=== PATIENT | female | born 1985 | race Caucasian/White ===

== ENCOUNTER 2023-10-18 09:58 | Outpatient (CLI) | payer BC, SELFPAY | END 2023-10-18 09:59 | disposition home or self-care (01) | LOC: AMB 10-20 15:50 | PROVIDERS: PCP General Practice; Visit Provider Emergency Medicine | DX: R55 Syncope and collapse (principal); R42 Dizziness and giddiness | CPT/HCPCS: A0425; A0427 ==

== ENCOUNTER 2023-10-18 10:38 | Emergency (ER) | payer BC, SELFPAY ==
[2023-10-18 10:48] VITALS: BP 128/83; PULSE 87; RESP 18; TEMP 36.8; O2SAT 99; BMI 24.0
[2023-10-18 10:59] VITALS: PULSE 70; O2SAT 100
[2023-10-18 11:00] VITALS: PULSE 72; O2SAT 100
[2023-10-18 11:02] VITALS: BP 113/68; PULSE 70; O2SAT 100
--- NOTE | 2023-10-18 11:06 | ED_ITS ---
HPI - General Adult General Date Seen: 10/18/23 Chief complaint: Dizziness/Vertigo Stated complaint: Lightheaded, dizzy Time Seen by Provider: 10/18/23 11:04 History of Present Illness HPI narrative: 38-year-old female with a history anxiety, on Effexor. She missed a dose of Effexor yesterday Zometa for by taking . She was feeling a bit lightheaded walking to her classroom. She sat down and put her head between her legs. She got very weak and very sweaty. She was lightheaded and presyncopal. 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 The nurse noted that she had a ?variable heart rate? between the 60s and 120s. She was brought to the ER by EMS. They administered 4 mg of Zofran 0 DT. They started an IV. They administered 500 mL of normal saline EN route. Blood sugar was reported as normal. Records through the electronic chart epic through [facility] indicate that she probably has primary care through [facility] in [place]. Medication list includes venlafaxine XR 150 mg daily, vitamins, control pills, vitamin-C . I am not able to get recent doctor's notes through the EMR. Patient recalls that she has been on Effexor for a couple of years. She is generally very reliable in taking it but has missed doses once or twice in the past. When she has missed her previous doses she has had mild episodes of dizziness and lightheadedness but not this severe. Now that she is here in the ER she is feeling better. She does not want any further workup. Discussed with the patient and her . She is no longer dizzy. She is ambulatory without symptoms. She refers discharged home. Related Data Home Medications ?Medication ?Instructions ?Recorded ?Confirmed norgestimate-ethinyl estradiol 1 tab PO DAILY 10/18/23 10/18/23 0.18 mg/0.215mg/0.25mg-35 mcg(28)tablet venlafaxine 150 mg mg PO 10/18/23 capsule,extended release 24 hr Allergies Allergy/AdvReac Type Severity Reaction Status Date / Time No Known Drug Allergies Allergy Verified 10/18/23 10:48 PFSH PFSH Social History Smoking Status: Never smoker Do you use any of these nicotine containing products: None Second hand tobacco smoke exposure: No How often do you have a drink containing alcohol: never AUDIT-C Alcohol total score: 0 Non-prescribed substance use: denies use service: No Exam Narrative: Exam Narrative: Constitutional: Appears well-developed and well-nourished. Alert. Conversant. Non toxic. HENT: Head: Atraumatic. Nose: Nose normal. Mouth/Throat: Oral mucosa is clear and moist. no trismus. Pharynx normal. Tonsils symmetric. No tonsillar enlargement, erythema, or exudate. Eyes: Conjunctivae normal. EOM normal. Pupils equal, round, and reactive to light. No scleral icterus. Neck: Normal range of motion. Neck supple. No tracheal deviation present. No JVD Cardiovascular: Normal rate, regular rhythm. No gallop. No friction rub. No murmur heard. Symmetric radial artery pulses Pulmonary/Chest: Effort normal. No stridor. No respiratory distress. No wheezes. No rales. No rhonchi . No tenderness. Abdominal: Soft. Bowel sounds normal. No distension. No mass. No tenderness. No rebound. No guarding. Musculoskeletal: RUE: Normal range of motion. No tenderness. No deformity LUE: Normal range of motion. No tenderness. No deformity RLE: Normal range of motion. No edema. No tenderness. No deformity LLE: Normal range of motion. No edema. No tenderness. No deformity Neurological: Alert and oriented to person, place, and time. Normal strength. CN II-VII intact. No sensory deficit. GCS eye subscore is 4. GCS verbal subscore is 5. GCS motor subscore is 6. Normal coordination . Gait normal. No ataxia. No dizziness. Skin: Skin is warm and dry. No rash noted. No pallor. Normal capillary refill. Psychiatric: Normal mood. Normal affect. Polite and cooperative. Const: Vital Signs, click to edit/add: Vital Signs - 24 hr 10/18/23 10:48 10/18/23 10:59 10/18/23 11:00 Temperature 98.3 F Pulse Rate 70 72 Pulse Rate [Pulse Oximeter] 87 Respiratory Rate 18 Blood Pressure Blood Pressure [Ri ght Upper Arm] 128/83 Pulse Oximetry 99 100 100 Oxygen Delivery Me thod Room Air 10/18/23 11:02 Temperature Pulse Rate 70 Pulse Rate [Pulse Oximeter] Respiratory Rate Blood Pressure 113/68 Blood Pressure [Ri ght Upper Arm] Pulse Oximetry 100 Oxygen Delivery Me thod Course Vital Signs Vital signs: Initial Vital Signs Temperature 98.3 F 10/18/23 10:48 Temperature Source Temporal Artery Scan 10/18/23 10:48 Pulse Rate 87 10/18/23 10:48 Respiratory Rate 18 10/18/23 10:48 Blood Pressure 128/83 10/18/23 10:48 Blood Pressure Mean 98 10/18/23 10:48 Pulse Oximetry 99 10/18/23 10:48 Oxygen Delivery Method Room Air 10/18/23 10:48 Vital Signs Temperature 98.3 F 10/18/23 10:48 Pulse Rate 87 10/18/23 10:48 Respiratory Rate 18 10/18/23 10:48 Blood Pressure 128/83 10/18/23 10:48 Pulse Oximetry 99 10/18/23 10:48 Oxygen Delivery Method Room Air 10/18/23 10:48 Temperature 98.3 F 10/18/23 10:48 Pulse Rate 70 10/18/23 11:02 Respiratory Rate 18 10/18/23 10:48 Blood Pressure 113/68 10/18/23 11:02 Pulse Oximetry 100 10/18/23 11:02 Oxygen Delivery Method Room Air 10/18/23 10:48 Medical Decision Making MDM Narrative Medical decision making narrative: This patient presents for evaluation of an episode of dizziness, lightheadedness. A broad differential was considered. History provided suggests a benign cause of syncope. No murmurs. She did have a variable heart rate as detected by the school nurse. Differential would include AFib, arrhythmia, PVCs, or other cardiac event. By the time the patient arrived here in the ER she had returned back to normal and has no ongoing symptoms. No chest pain concerning for cardiac ischemia or ACS . No headache or other neurologic symptoms to suggest subarachnoid , stroke . No reported seizure-like activity or postictal phase. 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 She has sinus rhythm on the monitor A broad differential diagnosis was considered including SVT, Atrial fibrillation, ventricular arrhythmia, thyroid disease, acute electrolyte abnormality, drugs/medications, medication side effect, anemia, heart disease, PE, among others. However the patient is feeling better and declines any further workup. Therefore no EKG, labs or further workup were obtained here in the ER. She discussed the differential a question with the patient and her she has medical decision-making capacity to decline further workup Recommend follow up. Questions answered and return precautions given Discharge Plan Discharge Clinical Impression: Dizziness Patient Disposition: Home, Self-Care Condition: Stable Instructions: Lightheadedness (ED), Dizziness (ED) Additional Instructions: As we discussed, please return to the ER right away if you have any worsening symptoms such as more dizziness, palpitations, chest pain, trouble breathing, lightheadedness, abdominal pain, fever, or any problems. Please follow up with your regular doctor within 1-2 weeks. Prescriptions: No Action venlafaxine 150 mg capsule,extended release 24hr PO norgestimate-ethinyl estradiol 0.18/0.215/0.25 mg-35 mcg (28) tablet 1 tab PO DAILY Follow Up/Referrals: Provider,Not a Local [Referring] - Stand Alone Forms: [email or web address] Info Instructions
== END 2023-10-18 11:42 | disposition home or self-care (01) ==
PROVIDERS: Emergency Provider Emergency Medicine; PCP General Practice
DX: R42 Dizziness and giddiness (principal)
CPT/HCPCS: 99282; 99283